=== PATIENT | female | born 1995 | race Caucasian/White ===

== ENCOUNTER 2017-03-14 20:44 | Emergency (ER) | payer OTHER ==
[~2017-03-14] VITALS: Ht 160 cm; Wt 54.0 kg
[~2017-03-14 20:44] MED LIST: AUGMENTIN 875 M1 TAB PO; AUGMENTIN 875-1 EACH PO; BACTROBAN15 GM TOP; BENADRYL25 MG PO; MUCINEX FAST-M1 EAC8 PO; NASONEX17 GM NASB; PROVENTIL HFA6.7 GM INH
[2017-03-14 20:52] VITALS: BP 133/80
--- NOTE | 2017-03-14 21:15 | ED GENERAL ADULT ---
History of Present Illness General Chief Complaint: General Adult Stated Complaint: MEDICATION REQUEST Source: patient Exam Limitations: no limitations Vital Signs & Intake/Output Vital Signs & Intake/Output Vital Signs Date Time Temp Pulse Resp B/P B/P Pulse O2 O2 Flow FiO2 Mean Ox Delivery Rate 03/14 2052 98.9 104 16 133/80 98 Room Air Allergies Coded Allergies: cat dander (NASAL CONGESTION 07/05/16) Reconcile Medications Albuterol Sulfate (Proventil Hfa) 6.7 GM HFA.AER.AD 2 PUF INH Q4 sob Amoxicillin/Potassium Clav (Augmentin 875-125 Tablet) 1 EACH TABLET 1 TAB PO BID sinusitis Clonidine HCl 0.1 MG TABLET 1 TAB PO BID PRN WITHDRAWAL SYMPTOMS Diphenhydramine HCl (Benadryl) 25 MG CAPSULE 1-2 CAP PO QPM ALLERGIES ( Reported) Mometasone Furoate (Nasonex) 17 GM SPRAY.PUMP 2 SPRAY NASB DAILY congestion Mupirocin Calcium (Bactroban) 15 GM CREAM..G. 1 AMARIS TOP TID impetigo apply to affected area(s) Phenylephrine/Dm/Acetaminop/GG (Mucinex Fast-Max Agpv-Glm-Vwpe) 1 EACH CAPSULE 2 CAP PO Q4H COLD SYMPTOMS (Reported) Triage Note: PT STATES THAT [facility] FOR 3 DAYS AND WAS DISCHARGED TODAY.REQUEST CLONIDINE TO HELP HER Triage Nurses Notes Reviewed? yes Onset: Gradual Duration: day(s): Timing: single episode today Injury Environment: home Severity: moderate Modifying Factors: Worsens With: other ("I'm afraid I'll get symptoms"). Associated Symptoms: muscle aches : No Patient currently breastfeeds: No HPI: 21 yo woman presents seeking clonidine. She shares that she was just released from a detox center where she was weaned down to Methadone 25mg. "I've done this four times before and they usually give me clonidine.... I feel okay now, but I'm afraid that I'm going to get symptoms." She denies SI/HI and is otherwise well. Past History Travel History Traveled to [place] past 21 day No Medical History Any Pertinent Medical History? see below for history Neurological: NONE EENT: NONE Cardiovascular: NONE Respiratory: NONE Gastrointestinal: NONE Hepatic: NONE Renal: NONE Musculoskeletal: NONE Psychiatric: NONE Endocrine: NONE Blood Disorders: HEP C Surgical History Surgical History: none Psychosocial History What is your primary language Pashto Tobacco Use: Current Daily Use Daily Tobacco Use Amount/Type: => 5 Cigarettes daily ETOH Use: denies use Illicit Drug Use: denies illicit drug use Family History Hx Contributory? No Review of Systems Review of Systems Constitutional: Reports: no symptoms. EENTM: Reports: no symptoms. Respiratory: Reports: no symptoms. Cardiovascular: Reports: no symptoms. GI: Reports: no symptoms. Genitourinary: Reports: no symptoms. Musculoskeletal: Reports: no symptoms. Skin: Reports: no symptoms. Neurological/Psychological: Reports: no symptoms. Hematologic/Endocrine: Reports: no symptoms. Immunologic/Allergic: Reports: no symptoms. All Other Systems: Reviewed and Negative Physical Exam Physical Exam General Appearance: well developed/nourished, no apparent distress Head: atraumatic, normal appearance Eyes: Bilateral: normal appearance. Ears, Nose, Throat: normal pharynx Neck: normal inspection, supple, full range of motion Respiratory: normal breath sounds, chest non-tender, no respiratory distress, quiet respiration, lungs clear Cardiovascular: regular rate/rhythm Gastrointestinal: normal bowel sounds, soft, non-tender, no organomegaly Back: normal inspection Extremities: normal inspection, normal capillary refill, normal range of motion, no edema Neurologic/Psych: no motor/sensory deficits, awake, alert, oriented x 3 Skin: intact, normal color Core Measures ACS in differential dx? No CVA/TIA Diagnosis: No Severe Sepsis Present: No Septic Shock Present: No Progress Differential Diagnoses I considered the following diagnoses in my evaluation of the patient: Opioid withdrawal versus other Plan of Care: Patient reports feeling otherwise well but requests clonidine, a medicine which has helped her in the past. I prescribed for 1 week's worth of clonidine and encourage her to follow up with the discharge plan, designed when she was in detox. Initial ED EKG: none Departure Departure Disposition: HOME OR SELF CARE Condition: Stable Clinical Impression Primary Impression: Opioid withdrawal Referrals: PATIENT HAS NO PRIMARY CARE DR (PCP/Family) Departure Forms: Customer Survey General Discharge Information Prescriptions: Current Visit Scripts Clonidine HCl 1 TAB PO BID PRN WITHDRAWAL SYMPTOMS #14 TAB Critical Care Note Critical Care Note Critical Care Time: non-applicable
[2017-03-14] MEDS ORDERED: CLONIDINE HCL0.1 MG PO (21:21)
== END 2017-03-14 21:30 ==
LOC: ERH 20:44
DX: F11.23 Opioid dependence with withdrawal (principal)